=== PATIENT | male | born 1995 | race Caucasian/White ===

== ENCOUNTER 2017-10-08 07:51 | Emergency (ER) | payer MEDICAID, OTHER ==
[~2017-10-08] VITALS: Ht 180.3 cm; Wt 67.6 kg
[2017-10-08 07:56] VITALS: BP 125/78
== END 2017-10-08 08:19 | disposition home or self-care (01) ==
LOC: ED 08:13
DX: K08.89 Other specified disorders of teeth and supporting structures (principal); F90.9 Attention-deficit hyperactivity disorder, unspecified type
CPT/HCPCS: 99283

== ENCOUNTER 2019-03-31 12:05 | Emergency (ER) | payer MEDICAID ==
[~2019-03-31] VITALS: Ht 182.9 cm; Wt 71.6 kg
[2019-03-31 12:18] VITALS: BP 139/73
--- NOTE | 2019-03-31 12:37 | NUR ---
AMBULATORY TO RADIOLOGY
[2019-03-31] MEDS ORDERED: DEXAMETHASONE 4 MG TABLET ONE (12:40)
[2019-03-31] MEDS ORDERED: DEXAMETHASONE 4 MG TABLET PO ONE (13:00)
== END 2019-03-31 13:36 | disposition home or self-care (01) ==
LOC: ED 13:30
DX: J02.0 Streptococcal pharyngitis (principal)
CPT/HCPCS: 71046; 87880; 99284

== ENCOUNTER 2019-11-29 11:10 | Emergency (ER) | payer MEDICAID ==
[~2019-11-29] VITALS: Ht 182.9 cm; Wt 73.3 kg
[2019-11-29 11:29] VITALS: BP 125/78
--- NOTE | 2019-11-29 11:51 | NUR ---
AVIONIC TECHNICIAN: PT AMBULATORY WITH STEADY GAIT TO ROOM AT THIS TIME. SHADIA
[2019-11-29] MEDS ORDERED: OXYcodone/APAP 5/325MG TABLET ONE (12:38)
[2019-11-29] MEDS ORDERED: OXYcodone/APAP 5/325MG TABLET PO ONE (13:00)
== END 2019-11-29 13:08 | disposition home or self-care (01) ==
LOC: ED 13:07
DX: K08.89 Other specified disorders of teeth and supporting structures (principal)
CPT/HCPCS: 99283

== ENCOUNTER 2020-02-19 13:47 | Emergency (ER) | payer MEDICAID ==
[~2020-02-19] VITALS: Ht 182.9 cm; Wt 74.9 kg
[2020-02-19 13:48] VITALS: BP 117/80
[2020-02-19] MEDS ORDERED: HYDROcodone/APAP 5/325 TABLET ONE ×2 (14:13→14:16)
[2020-02-19] MEDS ORDERED: HYDROcodone/APAP 5/325 TABLET PO ONE (14:30)
== END 2020-02-19 14:22 | disposition home or self-care (01) ==
LOC: ED 14:00
DX: K08.89 Other specified disorders of teeth and supporting structures (principal)
CPT/HCPCS: 99283

== ENCOUNTER 2020-11-01 13:19 | Emergency (ER) | payer MEDICAID ==
[~2020-11-01] VITALS: Ht 180.3 cm; Wt 73.8 kg
[2020-11-01 13:29] VITALS: BP 112/70
[2020-11-01] MEDS ORDERED: DIPH,PERTUSS(ACELL),TET VAC/PF 0.5 ML IM-VACC ONE ×2 (14:00→14:10)
--- NOTE | 2020-11-01 14:15 | NUR ---
CABLE RIGGER: TDAP GIVEN.
== END 2020-11-01 14:53 | disposition home or self-care (01) ==
LOC: ED 14:21
DX: S91.331A Puncture wound without foreign body, right foot, initial encounter (principal); X58.XXXA Exposure to other specified factors, initial encounter; Y93.89 Activity, other specified; Y92.009 Unspecified place in unspecified non-institutional (private) residence as the place of occurrence of the external cause; Y99.8 Other external cause status
CPT/HCPCS: 90471; 90715; 99283